=== PATIENT | female | born 1960 ===

== ENCOUNTER 2017-01-14 06:16 | Day surgery (SDC) | payer BC ==
[~2017-01-14] VITALS: Ht 167.6 cm; Wt 91.6 kg
[2017-01-14] VITALS (9 sets, daily range): BP systolic 110–142; BP diastolic 63–82
[~2017-01-14 06:16] MED LIST: BUPROPION XL300 MG ORAL; CYMBALTA30 MG ORAL
[2017-01-14] MEDS ORDERED: Midazolam 2mg/2ml Inj ONE (07:00)
[2017-01-14] MEDS ORDERED: LR 1000ml 1,000 ML IVLG SCH ×2 (07:00→07:07)
[2017-01-14] MEDS ORDERED: LR 1000ml ONE (07:00)
[2017-01-14] MEDS ORDERED: fentaNYL 100 mcg/2 mL IV ONE (07:00)
[2017-01-14] MEDS ORDERED: Propofol 10mg/ml 20ml IV ONE (07:00)
--- NOTE | 2017-01-14 07:07 | Anethesia Preoperative Eval ---
Anesthesia Pre-op PMH/ROS General Date of Evaluation: Jan 14, 2017 Time of Evaluation: 07:03 Anesthesiologist: Gualberto ASA Score: ASA 2 Mallampati Score Class I : Soft palate, uvula, fauces, pillars visible Class II: Soft palate, uvula, fauces visible Class III: Soft palate, base of uvula visible Class IV: Only hard plate visible Mallampati Classification: Class II Surgeon: Emily Diagnosis: Colon screning Surgical Procedure: colonoscopy Anesthesia History: none Family History: no anesthesia problems Allergies: Coded Allergies: CODEINE (Verified Allergy, Severe, 01/13/17) vomiting Medications: see eMAR Past Medical History Cardiovascular: Denies: HTN, CAD, [place], valve dz, arrhythmia, other Pulmonary: Denies: asthma, COPD, SIGIFREDO, other Gastrointestinal/Genitourinary: Reports: GERD - mild, other - Migrane headaches , Denies: CRI, ESRD Neurologic/Psychiatric: Denies: dementia, CVA, depression/anxiety, TIA, other Endocrine: Denies: DM, hypothyroidism, steroids, other HEENT: Denies: cataract (L), cataract (R), glaucoma, [place] (L), [place] (R), other Hematology/Immune: Denies: anemia, DVT, bleeding disorder, other Musculoskeletal/Integumentary: Denies: OA, RA, DJD, DDD, edema, other Other: other - ovrweight PMH Narrative: as above PSxH Narrative: C- section Anesthesia Pre-op Phys. Exam Physician Exam Last Vital Signs Date Time Temp Pulse Resp B/P (MAP) Pulse Ox O2 Delivery O2 Flow Rate FiO2 01/14/17 06:41 97.2 66 20 142/80 95 Room Air Constitutional: NAD Neurologic: CN 2-12 intact Cardiovascular: RRR, no M/R/G Respiratory: CTA Gastrointestinal: other - obesity Airway Exam Mallampati Score: Class II MO: full Neck: flexible ROM: full Teeth: intact Dentures: no upper, no lower Anesthesia Pre-op A/P Risk Assessment & Plan Assessment: ASA 2 Plan: MAC Status Change Before Surgery: No Pre-Antibiotics Drug: none PREETHI IBARRA M.D. Jan 14, 2017 07:07
--- NOTE | 2017-01-14 07:10 | Short Stay Surgery H&P ---
History of Present Illness History of Present Illness Chief Complaint see H&P HPI Nina Porras is a 56 year old female who was admitted on for Colon Screening Patient History Allergies: Coded Allergies: CODEINE (Verified Allergy, Severe, 01/13/17) vomiting PAST MEDICAL HISTORY: Past Surgeries: Social History: Medication History Scheduled Bupropion Hcl* (Wellbutrin*), 300 MG ORAL DAILY, (Reported) Duloxetine Hcl* (Cymbalta*), 30 MG ORAL DAILY, (Reported) Physical Exam Vital Signs Last Vital Signs Date Time Temp Pulse Resp B/P (MAP) Pulse Ox O2 Delivery O2 Flow Rate FiO2 01/14/17 06:41 97.2 66 20 142/80 95 Room Air Plan Attestation Are the patient's medical conditions optimized for surgery? STAR PAULINO Jan 14, 2017 07:10
--- NOTE | 2017-01-14 07:10 | Pre-Procedure Note/Attestation ---
Pre-Procedure Note/Attestation Complete Prior to Procedure Planned Procedure: not applicable Procedure Narrative: colon Indications for Procedure Pre-Operative Diagnosis: screen Attestation I attest that I discussed the nature of the procedure; its benefits; risks and complications; and alternatives (and the risks and benefits of such alternatives ), prior to the procedure, with the patient (or the patient's legal guest service representative). I attest that, if there was a reasonable possibility of needing a blood transfusion, the patient (or the patient's legal guest service representative) was given the [facility] standardized written summary, pursuant to the Joe Agatha Blood Safety Act ([place] Health and Safety Code # 1645, as amended). I attest that I re-evaluated the patient just prior to the surgery and that there has been no change in the patient's H&P, except as documented below: STAR PAULINO Jan 14, 2017 07:10
[2017-01-14] MEDS ORDERED: Meperidine 25mg/0.5ml Inj (FOR RIGORS ONLY) IV PRN (07:15)
[2017-01-14] MEDS ORDERED: DiphenhydrAMINE 50mg/ml Inj IVP PRN (07:15)
--- NOTE | 2017-01-14 07:47 | Immediate Post-Op Evaluation ---
Immediate Post-Op Evalulation Immediate Post-Op Evalulation Procedure: Colonoscopy Date of Evaluation: Jan 14, 2017 Time of Evaluation: 07:46 IV Fluids: 800 Blood Products: none Estimated Blood Loss: none Urinary Output: none Blood Pressure Systolic: 116 Blood Pressure Diastolic: 64 Pulse Rate: 58 Respiratory Rate: 20 O2 Sat by Pulse Oximetry: 98 Temperature (Fahrenheit): 97.6 Pain Score (1-10): 1 Nausea: No Vomiting: No Complications none Patient Status: awake, patent, none Hydration Status: adequate PREETHI IBARRA M.D. Jan 14, 2017 07:47
--- NOTE | 2017-01-14 08:36 | 48 Hour Post Anesthesia Eval ---
Post Anesthesia Evaluation Procedure: Colonoscopy Date of Evaluation: Jan 14, 2017 Time of Evaluation: 08:35 Blood Pressure Systolic: 124 0: 72 Pulse Rate: 64 Respiratory Rate: 20 Temperature (Fahrenheit): 97.6 O2 Sat by Pulse Oximetry: 98 Airway: patent Nausea: No Vomiting: No Pain Intensity: 1 Hydration Status: adequate Cardiopulmonary Status: stable Mental Status/LOC: patient returned to baseline Follow-up Care/Observations: n/a Post-Anesthesia Complications: none Follow-up care needed: ready to discharge PREETHI IBARRA M.D. Jan 14, 2017 08:36
--- NOTE | 2017-01-14 10:49 | Endoscopy Procedure Note ---
Endoscopy Procedure Note Indication for Procedure: screen Procedures Performed: colonoscopy Operative Findings/Diagnosis: dim descending polyp at 30 - bx, mild rhoid Specimen: yes Pt Tolerated Procedure Well: Yes Estimated Blood Loss: none Anesthesiologist: see report Anesthesia: MAC Medication Given: see anesthesia record Implant(s) used?: No 50 yrs or older w/o bx or poly: No 10yrs. F/U not recommended: No If not recommended, why?: Above average risk 10 yrs. F/U needed: No 18 years or older w/prev. colo: Yes <3yrs. since last colonoscopy: No Med reason:<3 yrs.: System Reason:<3 yrs.: Last colonoscopy >= to 3yrs: Yes STAR PAULINO Jan 14, 2017 10:49
--- NOTE | 2017-01-14 10:50 | Brief Operative Note ---
Immediate Post Operative Note Operative Note Chief Complaint: screen Pre-op Diagnosis: screen Procedure: colon , Bx Post-op Diagnosis: dim polyp at 30, desc colon, bx Surgeon: yoan Anesthesiologist: see report Anesthesia: MAC Specimen: yes Complications: none Condition: stable Fluids: per anes Estimated Blood Loss: none Drains: none Implant(s) used?: No STAR PAULINO Jan 14, 2017 10:50
--- NOTE | 2017-01-14 23:15 | Procedure Note ---
DATE OF PROCEDURE: 01/14/2017 GASTROENTEROLOGY PROCEDURE PROCEDURE: Screening colonoscopy and biopsy. SURGEON: Jeronimo Higgins M.D. ANESTHESIA: Please see the separate anesthesiologist notes for details. PRE-ENDOSCOPIC DIAGNOSIS: Screening colonoscopy. POST-ENDOSCOPIC DIAGNOSES: 1. Diminutive polyp in the descending colon at 30 cm, status post biopsy. 2. Mild internal hemorrhoids. DESCRIPTION OF PROCEDURE: The procedure and its risks, indications, alternatives, and possible complications including but not limited to bleeding, infection, perforation, , and anesthesia complications were explained to the patient and informed consent was obtained. The patient was then sedated in the left lateral decubitus position. A diagnostic colonoscope was introduced into the rectum and advanced to the cecum without difficulty. The cecum was identified by appearance of the ileocecal valve. The colonoscope was then gradually withdrawn and the mucosa examined carefully. Examination of the colonic mucosa revealed a diminutive polyp in the descending colon at 30 cm, which was removed with biopsy forceps. Retroflex view of the rectum revealed mild internal hemorrhoids. The colonoscope was removed. The patient was sent to recovery in good condition. COMPLICATIONS: None. RECOMMENDATIONS: 1. Follow up biopsy results. 2. High-fiber diet. 3. Outpatient followup. Jeronimo Higgins M.D. DR: CAREN JOB#: [id number] CC:
== END 2017-01-14 08:30 | disposition home or self-care (01) ==
LOC: GAS 06:16
DX: Z12.11 Encounter for screening for malignant neoplasm of colon (principal); K63.5 Polyp of colon; K64.8 Other hemorrhoids; Z88.6 Allergy status to analgesic agent; K21.9 Gastro-esophageal reflux disease without esophagitis; G43.909 Migraine, unspecified, not intractable, without status migrainosus; E66.9 Obesity, unspecified; Z68.32 Body mass index [BMI] 32.0-32.9, adult; I10 Essential (primary) hypertension
CPT/HCPCS: 45380; J2250; J2704; J3010; J7120; 94003; 94150